=== PATIENT | male | born 1995 | race Two or more races ===

== ENCOUNTER 2021-01-04 04:03 | Emergency (ER) | payer OTHER ==
[~2021-01-04] VITALS: Ht 172.7 cm; Wt 61.2 kg
--- NOTE | 2021-01-04 04:06 | NUR ---
PT BIBRA 102 FOUND LAYING ON GROUND BY RA. +ETOH. PT PLACED IN BED 11 ON MONITOR AND PULSE OX. ER MD AT BEDSIDE FOR EVAL. AWAITING RODERS.
[2021-01-04 04:28] LABS: BASOPHILS # (AUTO) 0.1 /CMM (0.0-0.2); EOSINOPHILS % (AUTO) 2.3 % (0.0-6.0); HEMATOCRIT 47 % (39-51); HEMOGLOBIN 16.2 g/dL (13.5-17.5); LYMPHOCYTES # (AUTO) 1.6 /CMM (0.8-4.8); LYMPHOCYTES % (AUTO) 23.3 % (20.0-44.0); MEAN CORPUSCULAR HGB CONC 35 g/dl (31.0-36.0); MEAN CORPUSCULAR VOLUME 89 fL (80-96); MONOCYTES # (AUTO) 0.7 /CMM (0.1-1.30); MONOCYTES % (AUTO) 9.8 % (2.0-12.0); NEUTROPHILS # (AUTO) 4.2 /CMM (1.8-8.9); NEUTROPHILS % (AUTO) 63.6 % (43.0-81.0); PLATELET COUNT (AUTO) 213 /CMM (150-450); RED BLOOD CELL COUNT(AUTO) 5.26 MIL/uL (4.5-6.0); WHITE BLOOD COUNT (AUTO) 6.7 K/uL (4.3-11.0)
[2021-01-04 04:36] LABS: CALCIUM, SERUM 8.3 mg/dL (8.5-10.1); CARBON DIOXIDE 25 mmol/L (21-32); CHLORIDE 105 mmol/L (98-107); GLUCOSE 115 mg/dL (74-106); POTASSIUM 3.3 mmol/L (3.5-5.1); SODIUM SERUM 143 mmol/L (136-145); UREA NITROGEN, BLOOD 9 mg/dL (7-18)
--- NOTE | 2021-01-04 04:40 | NUR ---
RADIOLOGY AT BEDSIDE TO BRING PT TO CT, PT HAD ONE EPISODE VOMITTING. MD BRADLEY
[2021-01-04] MEDS ORDERED: ONDANSETRON HCL/PF 4 MG/2 ML VIAL ONE (04:43)
[2021-01-04 04:44] LABS: ACETAMINOPHEN < 2 ug/ml (10-30); ALANINE AMINOTRANSFERASE 18 U/L (12-78); ALBUMIN 4.4 g/dL (3.4-5.0); ALCOHOL, BLOOD 351 mg/dL (0-0); ALKALINE PHOSPHATASE 95 U/L (46-116); ASPARTATE AMINOTRANSFERASE 8 U/L (15-37); BILIRUBIN,DIRECT 0.1 mg/dL (0.0-0.2); BILIRUBIN,TOTAL 0.4 mg/dL (0.2-1.0)
[2021-01-04] MEDS ORDERED: IV NS 0.9% 1,000 ML IV ONE (05:00)
[2021-01-04] MEDS ORDERED: ONDANSETRON HCL/PF 4 MG/2 ML VIAL IV ONE (05:00)
--- NOTE | 2021-01-04 05:23 | NUR ---
PT BROUGHT TO CT
--- NOTE | 2021-01-04 07:24 | NUR ---
ASSESSED PT ON BED ASLEEP EASILY AROUSABLE, NOT IN RESPRIATORY DISTRESS, V/S STABLE, KEPT RESTED AND COMFORTABLE. WILL CONTINUE TO MONITOR.
--- NOTE | 2021-01-04 10:10 | NUR ---
PT IS AWAKE AND ALERT. ABLE TO AMBULATE WITHOUT ASSISTANCE. AWARE.
--- NOTE | 2021-01-04 10:41 | NUR ---
IV removed. Catheter intact and site benign. Pressure and 4x4 applied to site. No bleeding noted. Patient discharged to home in stable condition. Written and verbal after care instructions given. Patient verbalizes understanding of instruction.
[2021-01-04 10:42] VITALS: BP 122/71
--- NOTE | 2021-01-04 10:47 | NUR ---
SW attempted to meet with pt. for ETOH intervention and to provide addiction resources. However, pt. had already departed.
== END 2021-01-04 10:42 | disposition home or self-care (01) ==
LOC: ER 04:06
DX: F10.129 Alcohol abuse with intoxication, unspecified (principal); R41.0 Disorientation, unspecified; Y90.8 Blood alcohol level of 240 mg/100 ml or more
CPT/HCPCS: 36415; 70450; 80048; 80076; 80299; 80320; 85025; 96361; 96374; 99284; J2405; J7040; G0480